=== PATIENT | male | born 1950 | race Caucasian/White ===

== ENCOUNTER 2021-12-09 06:00 | Day surgery (SDC) | payer OTHER ==
[2021-12-04 10:46] LABS: Bilirubin Total 0.3 mg/dL (0.2-1.0); Protein, Total 7.9 g/dL (6.4-8.2)
[2021-12-04 11:06] LABS: SARS-CoV-2 Antigen Rapid Res Negative (Negative)
--- NOTE | 2021-12-04 12:15 | EKG ---
Test Date: 2021-12-04 Test Time: 09:27:54 Executive Secretary: ROSALIE MEASUREMENT RESULTS: Intervals: Rate: 66 ME: 176 QRSD: 90 QT: 402 QTc: 421 Molt: P: 50 ME: 176 QRS: -9 T: 42 INTERPRETIVE STATEMENTS: Normal sinus rhythm Normal ECG Compared to ECG 10/14/1998 15:07:00 Sinus bradycardia no longer present Electronically Signed On 12-04-21 12:15:02 CDT by Cooper Sepulveda
[2021-12-09] MEDS ORDERED: Ringers Lactate 1,000 ML IV ONE (06:33)
[2021-12-09] MEDS ORDERED: EPINEPHRINE/PF 1 MG/ML AMP ONE (07:20)
[2021-12-09] MEDS ORDERED: LIDOCAINE 1% W/EPI 1:100,000 MDV 20 ML VIAL ONE (07:20)
[2021-12-09] MEDS ORDERED: propofoL 200 MG/20 ML VIAL IV ONE (07:22)
[2021-12-09] MEDS ORDERED: ROCURONIUM 50 MG/5 ML VIAL IV ONE (07:23)
[2021-12-09] MEDS ORDERED: LIDOCAINE 1% MPF 5 ML VIAL ONE (07:23)
[2021-12-09] MEDS ORDERED: FENTANYL CITR 100 MCG/2 ML ONE (07:23)
[2021-12-09] MEDS ORDERED: LIDOCAINE JELLY 2%- 5 ML TUBE ONE (07:40)
[2021-12-09] MEDS ORDERED: LABETALOL 20 MG/4ML SYRINGE IV ONE (07:54)
[2021-12-09] MEDS ORDERED: ONDANSETRON 4 MG/2 ML VIAL ONE (07:57)
--- NOTE | 2021-12-09 08:02 | P.OP ---
Electrical Engineering Intern: NONE,NONE Preoperative diagnosis: neoplasm base of tongue Postoperative diagnosis: same, path pending Primary procedure: direct laryngoscopy with biospy Anesthesia: general Estimated blood loss: 15ml Specimen: right base of tongue, including HPV/p16 staining Findings: firm right base of tongue/tonsil mass Operative Technique: The patient was brought to the operating room and placed under general anesthesia via endotracheal tube. During intubation, the glide scope was used for better visualization. During this procedure the epiglottis, arytenoids, true and false vocal cords and piriform sinus appeared uninvolved in tumor. Following securing of the endotracheal tube the exam under anesthesia revealed a approximately 3 cm firm indurated tumor centered around the right base of tongue. The [employer] laryngoscope was insufficient to visualize the area of concern. A Jeremiah laryngoscope was used to perform a direct laryngoscopy. Once placed in suspension a large cup forceps was used to take several biopsies from the right base of tongue and inferior portion of the right tonsil. The oropharynx was packed with Ray-Anna's for several minutes to aid in hemostasis. After removal the biopsy site appeared to be dry with only minimal oozing. The patient was then returned to care of anesthesia for awakening extubation in the operating room which proceeded without difficulty. Of note there was a small superficial laceration of the mid upper lip that did not require repair. Complications: None Implants: none Fluids & blood products: crystalloid 500ml Transferred to: Recovery Room Condition: Good
[2021-12-09] MEDS ORDERED: GLYCOPYRROLATE 0.2 MG/ML SYR ONE (08:03)
[2021-12-09] MEDS ORDERED: NEOSTIGMINE 1 MG/ML -10 ML VIAL ONE (08:09)
[2021-12-09] MEDS ORDERED: dexAMETHasone 4 MG/ML VIAL ONE (08:20)
[2021-12-09] MEDS ORDERED: SUCCINYLCHOLINE 20 MG/ML (10 ML) IV ONE (08:22)
[2021-12-09 10:19] VITALS: BP 154/70; TEMP 96.5; O2SAT 96
== END 2021-12-09 09:50 | disposition home or self-care (01) ==
LOC: OR 06:00
PROVIDERS: ATTEND Otolaryngology
PROC: 0CBM8ZX Excision of Pharynx, Via Natural or Artificial Opening Endoscopic, Diagnostic (ICD-10-PCS; principal; 2021-12-09 07:30)
DX: C01 Malignant neoplasm of base of tongue (principal); H93.13 Tinnitus, bilateral; E66.3 Overweight; Z20.822 Contact with and (suspected) exposure to COVID-19
CPT/HCPCS: 93005; 36415; 88305; 80053; 87811; 31536; J2704; J1100; J2710; J0330; J3010; J7120; J2405; J0171